=== PATIENT | male | born 1975 | race Caucasian/White ===

== ENCOUNTER 2018-08-20 10:27 | Inpatient (IN) | payer OTHER ==
[2018-08-20] MEDS ORDERED: ASPIRIN 81 MG PO STA (10:53)
[2018-08-20] MEDS ORDERED: SODIUM CHLORIDE 0.9% 1,000 ML IV STA (10:53)
[2018-08-20] MEDS ORDERED: ATORVASTATIN 80 MG TAB PO STA (10:54)
[2018-08-20] MEDS ORDERED: NITROGLYCERIN SL TABS 0.4 MG TAB SUBLINGUAL PRN ×2 (10:56→12:08)
--- NOTE | 2018-08-20 11:02 | ED ---
General Adult HPI - General Chief complaint: Chest Pain Stated complaint: chest pain Time Seen by Provider: 08/20/18 10:35 Source: patient, RN notes reviewed Mode of arrival: ambulatory Limitations: no limitations - History of Present Illness Initial comments: This is a 43-year-old male who presents emergency department with past medical history significant for blood clots for which she states she's on eliquis. Patient also has a history of MIs. Patient states she's had multiple stents and he believes she's had 3 heart attacks in the past. Patient states about an hour and a half prior to arrival he started having chest pain which made him short of breath and diaphoretic. Patient states the pain continues currently. Patient denies any nausea or vomiting. Patient denies any diarrhea. Patient denies any recent fever chills. Patient denies any headache patient denies numbness weakness. Patient denies taking any medicines prior to arrival. Patient denies any sweating the legs or calf tenderness. She does state he continues to smoke. - Related Data Home Medications Medication Instructions Recorded Confirmed Aspirin EC [Ecotrin Low Dose] 81 mg PO DAILY 08/20/18 08/20/18 Blood Thinner 1 tab PO DAILY 08/20/18 08/20/18 Allergies Allergy/AdvReac Type Severity Reaction Status Date / Time No Known Allergies Allergy Verified 08/20/18 10:38 Review of Systems ROS Statement: Those systems with pertinent positive or pertinent negative responses have been documented in the HPI. ROS Other: All systems not noted in ROS Statement are negative. Past Medical History Past Medical History: Chest Pain / Angina, Hyperlipidemia Past Surgical History: Heart Catheterization, Heart Catheterization With Stent Past Psychological History: No Psychological Hx Reported Smoking Status: Current every day smoker Past Alcohol Use History: Occasional Past Drug Use History: None Reported General Exam - General Exam Comments Initial Comments: GENERAL: Patient is well-developed and well-nourished. Patient is nontoxic and well- hydrated and is in mild distress. ENT: Neck is soft and supple. No significant lymphadenopathy is noted. Oropharynx is clear. Moist mucous membranes. Neck has full range of motion without eliciting any pain. EYES: The sclera were anicteric and conjunctiva were pink and moist. Extraocular movements were intact and pupils were equal round and reactive to light. Eyelids were unremarkable. PULMONARY: Unlabored respirations. Good breath sounds bilaterally. No audible rales rhonchi or wheezing was noted. CARDIOVASCULAR: There is a regular rate and rhythm without any murmurs gallops or rubs. ABDOMEN: Soft and nontender with normal bowel sounds. No palpable organomegaly was noted. There is no palpable pulsatile mass. SKIN: Skin is clear with no lesions or rashes and otherwise unremarkable. NEUROLOGIC: Patient is alert and oriented x3. Cranial nerves II through XII are grossly intact. Motor and sensory are also intact. Normal speech, volume and content. Symmetrical smile. MUSCULOSKELETAL: Normal extremities with adequate strength and full range of motion. LYMPHATICS: No significant lymphadenopathy is noted PSYCHIATRIC: Normal psychiatric evaluation. Limitations: no limitations Course Vital Signs 08/20/18 10:30 Temperature 97.3 F L Pulse Rate 72 Respiratory 20 Rate Blood Pressure 119/78 O2 Sat by Pulse 99 Oximetry Medical Decision Making - Medical Decision Making EKG was done at 1046 and received that showed acute NE medially called a STEMI and asked for cardiology. EKG was at a rate of 59 bpm normal sinus rhythm at heart rate of 59 bpm MT interval is 144 QRS is under 2 QT interval is 416 QTC is 411. Patient's EKG shows ST segment elevation in inferior leads II, III, and F aVF and ST segment depression in leads V1 through the 6. I spoke with Dr. Lyons soon as he called back and he arrived in the emergency department at 11:00. I did not press patient is oriented eliquis. I did give the patient Lipitor aspirin and nitroglycerin. Board chest x-ray showed no acute abnormality. I spoke with Dr. Martinez agreed to admit the patient. Critical Care Time Critical Care Time: Yes Total Critical Care Time: 35 Disposition Clinical Impression: STEMI (ST elevation myocardial infarction) Disposition: ADMITTED IP TO THIS HOSP Referrals: None,Stated [Primary Care Provider] - 1-2 days Time of Disposition: 11:00
[2018-08-20] MEDS ORDERED: IV FLUID CONTINUATION 750 ML IV ONE (11:05)
[2018-08-20 11:10] LABS: Basophils % (A) 1 %; Eosinophils # (A) 0.2 k/uL (0-0.7); Eosinophils % (A) 2 %; HCT 50.8 % (39.0-53.0); HGB 16.5 gm/dL (13.0-17.5); Lymphocytes # (A) 2.1 k/uL (1.0-4.8); Lymphocytes % (A) 25 %; MCH 30.7 pg (25.0-35.0); MCHC 32.6 g/dL (31.0-37.0); MCV 94.2 fL (80.0-100.0); Mean Platelet Volume 7.8; Monocytes # (A) 0.5 k/uL (0-1.0); Monocytes % (A) 6 %; Neutrophils # (A) 5.6 k/uL (1.3-7.7); Neutrophils % (A) 65 %; Platelet Count 253 k/uL (150-450); RBC 5.39 m/uL (4.30-5.90); RDW 12.8 % (11.5-15.5); WBC 8.5 k/uL (3.8-10.6)
[2018-08-20] MEDS ORDERED: ONDANSETRON 4 MG/2 ML VIAL ONE (11:13)
[2018-08-20] MEDS ORDERED: SODIUM CHLORIDE 0.9% 500 ML 500 ML IV ONE (11:15)
--- NOTE | 2018-08-20 11:15 | P.CRDCN ---
History of Present Illness History of present illness: This is Dr. 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 Later started experiencing midsternal chest discomfort is quite uncomfortable and he came to the emergency room here First 12-lead ECG shows sinus rhythm normal MT heart rate [address] minute and [address] elevation in the inferior leads with ST depression in V1 and V2 with T-wave inversions. There is a very subtle ST depression in V5 and V6, consistent with inferior posterior ST elevation NJ He takes ELIQUIS once a day along with an aspirin and says he has blood clot in his arteries and has a family history of this problem not sure exactly what his thrombotic history is did he was not able to give me the previous exact diagnosis ROS: No fever chills or rigors, no cough, phlegm or expectoration, +nausea, no vomiting or diarrhea, no hematuria, dysuria, no musculoskeletal complaints, no strokes or seizures, no skin lesions. EXAMINATION: Afebrile 97.3F blood pressure 119/78 mmHg pulse rate in the 70s looks uncomfortable but no respiratory distress No JVD Breath sounds are clear no rhonchi no crackles Normal heart sounds no murmurs no gallop or rub Abdomen is soft nontender Extremities are warm no edema REVIEW OF LABS, ECG & MEDICAL DATA ST elevation inferior leads ST depression V1 and V2, inferior posterior ST elevation NJ Labs white count 8.5, hemoglobin 16.5, platelets 253,000 He continues to smoke a few cigarettes Denies diabetes denies hypertension Not on statins Past Medical History Past Medical History: Chest Pain / Angina, Hyperlipidemia Past Surgical History: Heart Catheterization, Heart Catheterization With Stent Past Psychological History: No Psychological Hx Reported Smoking Status: Current every day smoker Past Alcohol Use History: Occasional Past Drug Use History: None Reported Medications and Allergies Home Medications Medication Instructions Recorded Confirmed Type Aspirin EC [Ecotrin Low Dose] 81 mg PO DAILY 08/20/18 08/20/18 History Blood Thinner 1 tab PO DAILY 08/20/18 08/20/18 History Allergies Allergy/AdvReac Type Severity Reaction Status Date / Time No Known Allergies Allergy Verified 08/20/18 10:38 Physical Exam Vitals: Vital Signs Temp Pulse Resp BP Pulse Ox 08/20/18 10:30 97.3 F L 72 20 119/78 99 Intake and Output 08/19/18 08/20/18 08/20/18 22:59 06:59 14:59 Other: Weight 83.915 kg Results 08/20/18 10:53 CBC 08/20/18 Range/Units 10:53 WBC 8.5 (3.8-10.6) k/uL RBC 5.39 (4.30-5.90) m/uL Hgb 16.5 (13.0-17.5) gm/dL Hct 50.8 (39.0-53.0) % Plt Count 253 (150-450) k/uL Current Medications Generic Name Dose Route Start Last Admin Trade Name Freq PRN Reason Stop Dose Admin Sodium Chloride 1,000 mls @ 999 mls/hr 08/20/18 10:53 08/20/18 11:00 Saline 0.9% IV 08/20/18 11:53 999 mls/hr .Q1H1M STA Administration Nitroglycerin 0.4 mg 08/20/18 10:56 08/20/18 11:00 Nitrostat SUBLINGUAL 0.4 mg Q5M PRN Administration Chest Pain Intake and Output 08/19/18 08/20/18 08/20/18 22:59 06:59 14:59 Other: Weight 83.915 kg Patient Weight 08/21/18 06:59 Weight 83.915 kg 08/20/18 10:53
--- NOTE | 2018-08-20 11:17 | XR ---
EXAMINATION TYPE: XR chest 1V portable DATE OF EXAM: 08/20/2018 COMPARISON: Prior chest x-ray 12/08/2011 HISTORY: Chest pain, myocardial infarction TECHNIQUE: Single frontal view of the chest is obtained. FINDINGS: Apical bullous disease is present on the right as on prior. No evident pneumothorax or ple ural effusion. Heart size is within normal limits. There are overlying cardiac leads. Aorta is dense. IMPRESSION: No acute process.
[2018-08-20 11:20] LABS: INR 0.9 (<1.2); Partial Thromboplastin Time 24.9 sec (22.0-30.0); Prothrombin Time 9.7 sec (9.0-12.0)
[2018-08-20] MEDS ORDERED: HYDROmorphone 1 MG/ML 1 ML SYRINGE ONE (11:20)
[2018-08-20] MEDS ORDERED: HYDROmorphone 1 MG/ML 1 ML SYRINGE IVP ONE (11:21)
[2018-08-20 11:23] LABS: ALT 27 U/L (21-72); AST 29 U/L (17-59); African American GFR (CKD) >90 (>60 ml/min/1.73 sqM); Albumin 4.4 g/dL (3.5-5.0); Alkaline Phosphatase 82 U/L (38-126); Anion Gap 10 mmol/L; Blood Urea Nitrogen 11 mg/dL (9-20); Calcium 9.5 mg/dL (8.4-10.2); Carbon Dioxide 22 mmol/L (22-30); Chloride 108 mmol/L (98-107); Glucose 129 mg/dL (74-99); Potassium 4.3 mmol/L (3.5-5.1); Sodium 140 mmol/L (137-145); Total Bilirubin 0.6 mg/dL (0.2-1.3); Total Protein 7.6 g/dL (6.3-8.2)
[2018-08-20] MEDS ORDERED: LIDOCAINE 1% INJ 10MG/ML (20 ML MDV) SQ ONE (11:24)
[2018-08-20] MEDS ORDERED: BIVALIRUDIN BOLUS 250 MG/50 ML IV ONE (11:28)
[2018-08-20] MEDS ORDERED: BIVALIRUDIN 250 MG in SODIUM CHLORIDE 0.9% 50 ML IV ONE (11:30)
[2018-08-20] MEDS ORDERED: niCARdipine 25 MG/10 ML VIAL ONE (11:45)
[2018-08-20] MEDS ORDERED: niCARdipine Syringe (1,000 mcg/10 mL) INTRACORON ONE (11:50)
[2018-08-20] MEDS ORDERED: IOPAMIDOL-370 100ML BTL INJ ONE (11:54)
[2018-08-20 11:56] LABS: Creatine Kinase MB 1.6 ng/mL (0.0-2.4)
[2018-08-20] MEDS ORDERED: PRASUGREL 10 MG TAB ONE (11:57)
[2018-08-20] MEDS ORDERED: PRASUGREL 10 MG TAB PO ONE (12:00)
[2018-08-20 12:05] LABS: Troponin I 0.081 ng/mL (0.000-0.034)
[2018-08-20] MEDS ORDERED: MAG HYDROX/AL HYDROX/SIMETH 30 ML CUP PO PRN (12:08)
[2018-08-20] MEDS ORDERED: ATROPINE SULFATE 0.1 MG/ML 10ML SYRINGE IV PRN (12:08)
[2018-08-20] MEDS ORDERED: RX INFO: IV CONTRAST WAS GIVEN 1 EACH MISC MISCELLANE PRN (12:08)
[2018-08-20] MEDS ORDERED: ZOLPIDEM 5 MG TAB PO PRN (12:08)
[2018-08-20 12:36] LABS: Glucose,Whole Blood 111 mg/dL (75-99)
[2018-08-20 13:16] VITALS: BMI 23.7
[2018-08-20] MEDS: SODIUM CHLORIDE 0.9% 1,000 ML IV SCH (13:23)
--- NOTE | 2018-08-20 13:24 | CC ---
CARDIAC CATHETERIZATION REPORT PROCEDURE: CORONARY ANGIOGRAPHY AND PTCA AND STENTING OF RCA PERFORMED BY: Dr. Natalie Cervantes Moderate conscious sedation time was 37 minutes. Patient was administered Dilaudid, Versed and oxygen saturation. Hemodynamics and EKG were monitored closely. CLINICAL INFORMATION: Mr. Melchor Urbina is a 43-year-old gentleman who presented initially 7 years ago in 2011 with an acute inferior MD and underwent stenting of RCA with a combination of bare metal and drug-eluting stents. Since then he has not followed up here, but apparently a month later, he had a repeat procedure performed of the same vessel and about 10 months ago about October also of last year he had a repeat intervention and it is unclear which vessel was performed. He presented to the hospital emergency room with chest pain strongly suggestive of acute MD with inferior ST elevation. Underwent prompt evaluation by Dr. 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 Patient was in significant pain with inferior ST elevation. Cardiac cath was performed expeditiously. This patient underwent a repeat stenting in October of last year and this was apparently performed in [place], but he has not been on dual antiplatelet therapy. He is taking aspirin and an anticoagulant probably apixaban 5 mg one tablet daily. He is not on any statin agents and seems to be very noncompliant with medications. He does continue to smoke heavily. PROCEDURE NOTE: Under local anesthesia and strict aseptic precautions, a 6-Egyptian introducer was placed in the right femoral artery. Initially I started off with a right Don type guide catheter to cannulate the RCA and this vessel was totally occluded. I performed stenting of this vessel expeditiously and then performed coronary angiography of the left system and checked LV pressures but did not perform an LV gram. PCI PROCEDURE DETAILS: A standard right Don guide catheter was used to cannulate the right coronary artery. I used a Whisper wire to cross the lesion and a 3.5, 15 mm NC Trek balloon to dilate the total occlusion. Re-perfusion was accomplished in 65 minutes since his arrival to the ER. Subsequently, I deployed a 15 mm long 4.0 caliber bare metal vision stent in the midportion of the stented segment and post dilated the entire stented segment with a 4.0 caliber 20 mm NC Trek balloon at 12 to 14 atmospheres. Excellent angiographic result was achieved. Patient had relief of chest pain with improvement but not resolution of ST-segment elevation. The sheath was taken out and Angio- Seal device used to secure hemostasis and he was sent to the room in a stable condition. Following the PCI procedure, I performed selective coronary angiography of the left system using a standard left Don catheter and a pigtail catheter was used to check LV pressures but LV gram was not performed. patient received 60 mg of Effient and Angiomax bolus and infusion was given as per protocol RECOMMENDATION: Excellent angiographic result without complication was achieved and findings were were discussed with the patient and . I explained to them that I used a bare metal stent mainly because of concern with his compliance with medications and he should be on dual antiplatelet therapy without interruption for one year and also take 80 mg of Lipitor unless there is a contraindication. I counseled him regarding the need to quit smoking. CORONARY ANGIOGRAPHY FINDINGS: RIGHT CORONARY ARTERY: This is a dominant vessel, totally occluded in the proximal portion with thrombus without antegrade flow. This stenosis seems to be in the middle of the stented segment. LEFT MAIN CORONARY ARTERY: Short patent disease-free vessel that immediately bifurcates into LAD and circumflex. No significant disease in the left main. LEFT ANTERIOR DESCENDING CORONARY ARTERY: Good caliber vessel extends along the anterior wall, has about 30% mid LAD narrowing. No significant disease, gives off 2 diagonal branches in the midportion, runs all the way to the apex supplying a sizable amount of myocardium. No significant disease in the LAD system. LEFT POSTERIOR CIRCUMFLEX CORONARY ARTERY: Nondominant vessel gives 2 small branches that run laterally, have minor irregularities. No significant disease. LEFT VENTRICULOGRAM: Left ventriculogram was not performed. FINAL IMPRESSION: This patient has total occlusion of RCA and no significant disease in the left system. Right is a super dominant vessel that was stented with a bare-metal stent with excellent result. MMODL / IJN: [id number] / MTDD
--- NOTE | 2018-08-20 14:19 | P.HPIM ---
History of Present Illness Patient is a pleasant 43-year-old gentleman had a history of myocardial infarction twice in the past came in with the atypical chest pain found to have ST elevations in inferior the lesions underwent a catheterization and stenting of the RCA. Apparently this is same vessel that was tender multiple times. 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 Patient is presently on dual antiplatelet therapy beta arturo and a statin. Patient continues to smoke did not tolerate statins in the past very well. He didn't tolerate Lipitor or Crestor Review of Systems REVIEW OF SYSTEMS: CONSTITUTIONAL: No fever, no malaise, no fatigue. HEENT: No recent visual problems or hearing problems. Denied any sore throat. CARDIOVASCULAR: As mentioned in HPI PULMONARY: No shortness of breath, no cough, no hemoptysis. GASTROINTESTINAL: No diarrhea, no nausea, no vomiting, no abdominal pain. NEUROLOGICAL: No headaches, no weakness, no numbness. HEMATOLOGICAL: Denies any bleeding or petechiae. GENITOURINARY: Denies any burning micturition, frequency, or urgency. MUSCULOSKELETAL/RHEUMATOLOGICAL: Denies any joint pain, swelling, or any muscle pain. ENDOCRINE: Denies any polyuria or polydipsia. The rest of the 14-point review of systems is negative. Past Medical History Past Medical History: Chest Pain / Angina, Hyperlipidemia, Myocardial Infarction (RI) Additional Past Medical History / Comment(s): Arthritis in both knees, elbows and wrists. Last Myocardial Infarction Date:: 08/20/18 History of Any Multi-Drug Resistant Organisms: None Reported Past Surgical History: Heart Catheterization, Heart Catheterization With Stent Date of Last Stent Placement:: 08/20/18 Past Psychological History: No Psychological Hx Reported Smoking Status: Current every day smoker Past Alcohol Use History: Occasional Past Drug Use History: None Reported - Past Family History Mother Family Medical History: Deep Vein Thrombosis (DVT) Additional Family Medical History / Comment(s): Pt states "my moms entire side of the family has a history of clotting." Medications and Allergies Home Medications Medication Instructions Recorded Confirmed Type Aspirin EC [Ecotrin Low Dose] 81 mg PO DAILY 08/20/18 08/20/18 History Blood Thinner 1 tab PO DAILY 08/20/18 08/20/18 History Allergies Allergy/AdvReac Type Severity Reaction Status Date / Time No Known Allergies Allergy Verified 08/20/18 10:38 Physical Exam Vitals: Vital Signs Temp Pulse Resp BP Pulse Ox 08/20/18 14:00 62 16 137/85 97 08/20/18 13:20 73 17 97 08/20/18 13:10 72 16 97 08/20/18 13:00 68 14 139/87 97 08/20/18 12:50 67 12 97 08/20/18 12:40 98.1 F 61 16 141/89 98 08/20/18 12:35 17 08/20/18 11:10 135/92 08/20/18 11:00 23 113/83 99 08/20/18 10:52 65 17 133/95 100 08/20/18 10:30 97.3 F L 72 20 119/78 99 Intake and Output 08/19/18 08/20/18 08/20/18 22:59 06:59 14:59 Intake Total 1125 Output Total 0 Balance 1125 Intake: IV 1125 0.9 225 Output: Urine 0 Other: Voiding Method Urinal # Voids 0 Weight 83.915 kg PHYSICAL EXAMINATION: GENERAL: The patient is alert and oriented x3, not in any acute distress. Well developed, well nourished. HEENT: Pupils are round and equally reacting to light. EOMI. No scleral icterus. No conjunctival pallor. Normocephalic, atraumatic. No pharyngeal erythema. No thyromegaly. CARDIOVASCULAR: S1 and S2 present. No murmurs, rubs, or gallops. PULMONARY: Chest is clear to auscultation, no wheezing or crackles. ABDOMEN: Soft, nontender, nondistended, normoactive bowel sounds. No palpable organomegaly. MUSCULOSKELETAL: No joint swelling or deformity. EXTREMITIES: No cyanosis, clubbing, or pedal edema. NEUROLOGICAL: Gross neurological examination did not reveal any focal deficits. SKIN: No rashes. Results CBC & Chem 7: 08/20/18 10:53 08/20/18 10:53 Labs: Abnormal Lab Results - Last 24 Hours (Table) 08/20/18 08/20/18 08/20/18 Range/Units 10:53 10:53 12:34 Chloride 108 H (98-107) mmol/L Glucose 129 H (74-99) mg/dL POC Glucose (mg/dL) 111 H (75-99) mg/dL Total Creatine Kinase 241 H (55-170) U/L Troponin I 0.081 H* (0.000-0.034) ng/mL Thrombosis Risk Factor Assmnt - Choose All That Apply Each Factor Represents 1 point: Acute RI, Age 41-60 years Each Risk Factor Represents 3 Points: Family history of DVT/PE Thrombosis Risk Factor Assessment Total Risk Factor Score: 5 Thrombosis Risk Factor Assessment Level: High Risk Assessment and Plan Plan: -ST elevation myocardial infarction: Patient is status post cardiac catheterization and stenting of the RCA patient did not tolerate Lipitor well in the past but patient is presently on that medication will discuss with cardiology regarding this. Patient stopped this medication in the past because of severe myalgias he even tried Crestor which has lesser side effects but did not tolerate that either. Because of non-ST elevation microinfarction patient will monitor for next couple days possibility of discharge on patient is prone to life-threatening arrhythmias including V. tach in first 48-72 hours -Continued nicotine use: Counseling was provided regarding this -Hypertension
[2018-08-20] MEDS: ATORVASTATIN 80 MG TAB PO SCH (20:58)
[2018-08-20] MEDS: LISINOPRIL 10 MG TAB PO SCH (20:59)
[2018-08-20] MEDS: METOPROLOL TARTRATE 12.5 MG TAB PO SCH (20:59)
[2018-08-21] MEDS: SODIUM CHLORIDE 0.9% 1,000 ML IV SCH (01:30)
[2018-08-21 06:01] LABS: Basophils % (A) 0 %; Eosinophils # (A) 0.1 k/uL (0-0.7); Eosinophils % (A) 1 %; HCT 46.3 % (39.0-53.0); HGB 15.2 gm/dL (13.0-17.5); Lymphocytes % (A) 21 %; MCH 30.8 pg (25.0-35.0); MCHC 32.9 g/dL (31.0-37.0); MCV 93.9 fL (80.0-100.0); Mean Platelet Volume 8.3; Monocytes # (A) 0.5 k/uL (0-1.0); Monocytes % (A) 6 %; Neutrophils # (A) 6.6 k/uL (1.3-7.7); Neutrophils % (A) 70 %; Platelet Count 198 k/uL (150-450); RBC 4.94 m/uL (4.30-5.90); RDW 15.1 % (11.5-15.5); WBC 9.4 k/uL (3.8-10.6)
[2018-08-21 06:13] LABS: African American GFR (CKD) >90 (>60 ml/min/1.73 sqM); Anion Gap 5 mmol/L; Blood Urea Nitrogen 9 mg/dL (9-20); Calcium 8.5 mg/dL (8.4-10.2); Carbon Dioxide 21 mmol/L (22-30); Chloride 114 mmol/L (98-107); Glucose 97 mg/dL (74-99); Potassium 4.2 mmol/L (3.5-5.1); Sodium 140 mmol/L (137-145)
[2018-08-21] MEDS: PRASUGREL 10 MG TAB PO SCH (08:49)
[2018-08-21] MEDS: ASPIRIN 81 MG PO SCH (08:49)
[2018-08-21] MEDS: METOPROLOL TARTRATE 12.5 MG TAB PO SCH ×2 (09:27→19:51)
--- NOTE | 2018-08-21 11:54 | ECHOF ---
Referral Reason:Inferior STEMI and RCA PCI MEASUREMENTS -------- HEIGHT: 188.0 cm WEIGHT: 83.9 kg BP: 91/52 RVIDd: 2.9 cm (< 3.3) IVSd: 1.3 cm (0.6 - 1.1) LVIDd: 4.2 cm (3.9 - 5.3) LVPWd: 1.2 cm (0.6 - 1.1) IVSs: 1.7 cm LVIDs: 2.9 cm LVPWs: 1.9 cm LA Diam: 3.1 cm (2.7 - 3.8) LAESV Index (A-L): 16.95 ml/m Ao Diam: 3.6 cm (2.0 - 3.7) AV Cusp: 1.8 cm (1.5 - 2.6) MV EXCURSION: 27.939 mm (> 18.000) MV EF SLOPE: 127 mm/s (70 - 150) EPSS: 0.5 cm MV E Garth: 0.84 m/s MV DecT: 161 ms MV A Garth: 0.93 m/s MV E/A Ratio: 0.91 RAP: 5.00 mmHg RVSP: 25.10 mmHg FINDINGS -------- Resting bradycardia (HR<60bpm). This was a technically good study. The left ventricular size is normal. There is mild concentric left ventricular hypertrophy. Overa ll left ventricular systolic function is normal with, an EF between 55 - 60 %. The right ventricle is normal in size. Normal LA size by volume 22+/-6 ml/m2. The right atrium is normal in size. Aneurysmal Interatrial septum. The aortic valve is trileaflet and appears structurally normal. The mitral valve is normal. Mild tricuspid regurgitation present. Right ventricular systolic pressure is normal at < 35 mmHg. The aortic root size is normal. Normal inferior vena cava with normal inspiratory collapse consistent with estimated right atrial pre ssure of 5 mmHg. There is no pericardial effusion. CONCLUSIONS -------- 1. Resting bradycardia (HR<60bpm). 2. This was a technically good study. 3. The left ventricular size is normal. 4. There is mild concentric left ventricular hypertrophy. 5. Overall left ventricular systolic function is normal with, an EF between 55 - 60 %. 6. The right ventricle is normal in size. 7. Normal LA size by volume 22+/-6 ml/m2. 8. The right atrium is normal in size. 9. Aneurysmal Interatrial septum. 10. The aortic valve is trileaflet and appears structurally normal. 11. The mitral valve is normal. 12. Mild tricuspid regurgitation present. 13. Right ventricular systolic pressure is normal at < 35 mmHg. 14. The aortic root size is normal. 15. Normal inferior vena cava with normal inspiratory collapse consistent with estimated right atrial pressure of 5 mmHg. 16. There is no pericardial effusion. PSYCHIATRY INSTRUCTOR: Linda Denise RDCS
[2018-08-21] MEDS ORDERED: PRASUGREL 10 MG TAB PO SCH (12:09)
--- NOTE | 2018-08-21 14:21 | P.PN ---
Subjective Patient was admitted for [facility] microinfarction clinically doing well underwent stenting to RCA. Patient's troponin is 3.29. Post catheterization Echocardiogram showed normal ejection fraction. Constitutional: Denied any fatigue denied any fever. Cardio vascular: denied any chest pain, palpitations Gastrointestinal denied any nausea vomiting Pulmonary: Denied any shortness of breath cough Neurologic denied any new focal deficits All inpatient medications were reviewed and appropriate changes in these medications as dictated in the interval history and assessment and plan. Objective - Vital Signs Vital signs: Vital Signs Temp 97.7 F 08/21/18 12:00 Pulse 50 L 08/21/18 12:00 Resp 19 08/21/18 12:00 BP 102/67 08/21/18 12:00 Pulse Ox 95 08/21/18 12:00 Intake & Output 08/20/18 08/21/18 08/21/18 18:59 06:59 18:59 Intake Total 1425 900 450 Output Total 750 700 0 Balance 675 200 450 Weight 83.915 kg 79.7 kg Intake: IV 1425 900 450 0.9 525 900 450 Output: Urine 750 700 0 Other: Voiding Method Urinal Urinal Urinal # Voids 1 0 1 # Bowel Movements 1 - Exam PHYSICAL EXAMINATION: GENERAL: The patient is alert and oriented x3, not in any acute distress. Well developed, well nourished. HEENT: Pupils are round and equally reacting to light. EOMI. No scleral icterus. No conjunctival pallor. Normocephalic, atraumatic. No pharyngeal erythema. No thyromegaly. CARDIOVASCULAR: S1 and S2 present. No murmurs, rubs, or gallops. PULMONARY: Chest is clear to auscultation, no wheezing or crackles. ABDOMEN: Soft, nontender, nondistended, normoactive bowel sounds. No palpable organomegaly. MUSCULOSKELETAL: No joint swelling or deformity. EXTREMITIES: No cyanosis, clubbing, or pedal edema. NEUROLOGICAL: Gross neurological examination did not reveal any focal deficits. SKIN: No rashes. - Labs CBC & Chem 7: 08/21/18 05:47 08/21/18 05:47 Labs: Abnormal Lab Results - Last 24 Hours (Table) 08/20/18 08/21/18 Range/Units 17:14 05:47 Chloride 114 H (98-107) mmol/L Carbon Dioxide 21 L (22-30) mmol/L Troponin I 3.290 H* (0.000-0.034) ng/mL Assessment and Plan Plan: -ST elevation myocardial infarction: Patient is status post cardiac catheterization and stenting of the RCA patient did not tolerate Lipitor well in the past but patient is presently on that medication will discuss with cardiology regarding this. Patient stopped this medication in the past because of severe myalgias he even tried Crestor which has lesser side effects but did not tolerate that either. Because of non-ST elevation microinfarction patient will monitor for next couple days possibility of discharge on patient is prone to life-threatening arrhythmias including V. tach in first 48-72 hours. Patient had normal ejection fraction and cardiac echocardiogram -Continued nicotine use: Counseling was provided regarding this -Hypertension
--- NOTE | 2018-08-21 14:29 | P.PN ---
Subjective This is Beata Salgado PA-C dictating a progress note on this patient The patient was interviewed and examined by me as well as by Dr. Lyons Case discussed with Dr. Lyons and he agrees with the plan of care IMPRESSION / ASSESSMENT: Inferior posterior ST elevation [place] status post stenting to the RCA CAD status post multiple previous stents Dyslipidemia, history of intolerance to statins, tolerated atorvastatin yesterday History of arterial thrombotic condition, exact diagnosis unknown Current Smoker PLAN: Continue with dual antiplatelet therapy continue atorvastatin 80 mg daily as tolerated Continue was low-dose beta arturo as tolerated Maximize medical treatment for CAD HPI/interval history Patient is a 43-year-old male with a past medical history of CAD status post stenting who presented with chest pain. EKG showed ST elevation inferiorly. He underwent coronary angiography which showed a total occlusion to the RCA which was stented. He had some sinus bradycardia overnight. He did receive beta blockers. Echocardiogram showed normal LV size and function. Currently denies any chest pain, palpitations, dizziness, lightheadedness, shortness of breath. He slept comfortably, no orthopnea, no PND. EXAMINATION Patient is afebrile, pulse 51, respirations 22, blood pressure 97/60, oxygen saturation 96% on room air Patient seen and examined resting comfortably in bed Heart is regular, normal S1-S2, no murmurs rubs or gallops Lungs clear to auscultation bilaterally No elevated JVD No lower extremity edema REVIEW OF LABS, ECG WBC 9.4, hemoglobin 15.1, potassium 4.2, BUN/creatinine 9, creatinine 2.81 Rhythm strips reveal sinus bradycardia in 50s Echocardiogram showed normal LV size, mild concentric LVH, normal LV function, EF 55-60% Coronary angiogram showed total occlusion of the RCA Objective - Vital Signs Vital signs: Vital Signs Temp 97.7 F 08/21/18 12:00 Pulse 50 L 08/21/18 12:00 Resp 19 08/21/18 12:00 BP 102/67 08/21/18 12:00 Pulse Ox 95 08/21/18 12:00 Intake & Output 08/20/18 08/21/18 08/21/18 18:59 06:59 18:59 Intake Total 1425 900 450 Output Total 750 700 0 Balance 675 200 450 Weight 83.915 kg 79.7 kg Intake: IV 1425 900 450 0.9 525 900 450 Output: Urine 750 700 0 Other: Voiding Method Urinal Urinal Urinal # Voids 1 0 1 # Bowel Movements 1 - Labs CBC & Chem 7: 08/21/18 05:47 08/21/18 05:47 Labs: Abnormal Lab Results - Last 24 Hours (Table) 08/20/18 08/21/18 Range/Units 17:14 05:47 Chloride 114 H (98-107) mmol/L Carbon Dioxide 21 L (22-30) mmol/L Troponin I 3.290 H* (0.000-0.034) ng/mL
[2018-08-21] MEDS: LISINOPRIL 10 MG TAB PO SCH (19:51)
[2018-08-21] MEDS: ATORVASTATIN 80 MG TAB PO SCH (19:51)
[2018-08-22] MEDS: ASPIRIN 81 MG PO SCH (09:09)
[2018-08-22] MEDS: METOPROLOL TARTRATE 12.5 MG TAB PO SCH (09:09)
[2018-08-22] MEDS: PRASUGREL 10 MG TAB PO SCH (09:09)
[2018-08-22 12:39] VITALS: BP 104/70; PULSE 55; RESP 14; TEMP 97.5
--- NOTE | 2018-08-22 13:37 | P.DS ---
Providers Date of admission: 08/20/18 11:08 Attending physician: Luis Neil Consults: 08/20/18 10:53 Consult Physician Stat Consulting Provider: Xavier Lyons Consult Reason/Comments: STEMI Do you want consulting provider notified?: Already Contacted 08/20/18 12:08 Consult Physician Routine Consulting Provider: [facility] Consult Reason/Comments: Post Interventional patient Do you want consulting provider notified?: Already Contacted Placement Type Exists?: Yes Primary care physician: Stated None Hospital Course: 43-year-old male was admitted for ST elevation myocardial infarction, underwent stenting of RCA patient is clinically doing well will be discharged today patient had normal ejection fraction. PHYSICAL EXAMINATION: GENERAL: The patient is alert and oriented x3, not in any acute distress. Well developed, well nourished. HEENT: Pupils are round and equally reacting to light. EOMI. No scleral icterus. No conjunctival pallor. Normocephalic, atraumatic. No pharyngeal erythema. No thyromegaly. CARDIOVASCULAR: S1 and S2 present. No murmurs, rubs, or gallops. PULMONARY: Chest is clear to auscultation, no wheezing or crackles. ABDOMEN: Soft, nontender, nondistended, normoactive bowel sounds. No palpable organomegaly. MUSCULOSKELETAL: No joint swelling or deformity. EXTREMITIES: No cyanosis, clubbing, or pedal edema. NEUROLOGICAL: Gross neurological examination did not reveal any focal deficits. SKIN: No rashes. Principal to my dictation of prednisone from yesterday for further details of hospitalization course and other medical problems that were addressed if Plan - Discharge Summary Discharge Rx Participant: Yes New Discharge Prescriptions: No Action Aspirin EC [Ecotrin Low Dose] 81 mg PO DAILY Eliquis Unknown Dose 1 tab PO DAILY Discharge Medication List Aspirin EC [Ecotrin Low Dose] 81 mg PO DAILY 08/20/18 [History] Eliquis Unknown Dose 1 tab PO DAILY 08/20/18 [History] Follow up Appointment(s)/Referral(s): Xavier Lyons MD [STAFF PHYSICIAN] - 08/30/18 1:30 pm Nicholas Talley MD [STAFF PHYSICIAN] - 08/29/18 9:30 am None,Stated [Primary Care Provider] - 1-2 days Patient Instructions/Handouts: Hypotension (GEN), Bradycardia (GEN), Coronary Intravascular Stent Placement (DC) Discharge Disposition: HOME SELF-CARE
--- NOTE | 2018-08-22 15:02 | P.PN ---
Subjective This is Beata Salgado PA-C dictating a progress note on this patient The patient was interviewed and examined by me as well as by Dr. Lyons Case discussed with Dr. Lyons and he agrees with the plan of care IMPRESSION / ASSESSMENT: Inferior posterior ST elevation [place] status post stenting of the RCA History of CAD status post multiple previous stents Dyslipidemia, history of statin induced myalgias Patient was on eliquis 2.5 mg twice daily at home, indication/diagnosis unknown current smoker PLAN: Continue with dual antiplatelet therapy, beta blockers In light of his history of severe myalgias with atorvastatin, Try Pravachol 40 mg daily for statin therapy Patient is to get his records from out of town and bring them to his appointment so that we can see why he was on eliquis make a decision regarding antiplatelet and anticoagulation therapy Patient is stable for discharge from a cardiac standpoint, follow-up outpatient with Dr. Lyons within a week smoking cessation recommended HPI/interval history Patient is a 43-year-old male with past medical history of CAD status post multiple previous stents who presented to the emergency department with chest pain. His EKG showed ST elevations inferiorly. He underwent coronary angiography and was found to have total occlusion of the RCA and underwent stenting. He has done well post procedure. He was started on atorvastatin but is concerned because he had severe muscle aches 3 days after starting atorvastatin a few years ago. Also, prior to this admission, he was on on eliquis 2.5 mg twice a day at home and is unclear exactly why he was on this. He believes he may have an arterial thrombotic condition but is unsure of the exact diagnosis. Does not believe he ever had blood clots in his legs. He also believes he may have been put on it for a "a very fast heart rate". He was seen and examined sitting up in his chair, appears comfortable. Denies any chest pain, shortness of breath, lightheadedness, dizziness, syncope. EXAMINATION Patient is afebrile, pulse 55, respirations 14, blood pressure 104/70, oxygen saturation 90% on room air Patient seen and examined resting comfortably in bed Lungs clear to auscultation bilaterally, no rhonchi, wheezing, or crackles appreciated Heart is regular, normal S1 and S2, no murmurs gallops or rubs No lower extremity edema REVIEW OF LABS, ECG Rhythm strips reveal no ventricular arrhythmias overnight Echo showed normal LV size and function, EF 55-60%, mild concentric LVH most recent labs: Potassium 4.2, BUN 9, creatinine 0.81 Objective - Vital Signs Vital signs: Vital Signs Temp 97.5 F L 08/22/18 12:00 Pulse 55 L 08/22/18 12:00 Resp 14 08/22/18 12:00 BP 104/70 08/22/18 12:00 Pulse Ox 95 08/22/18 12:00 Intake & Output 08/21/18 08/22/18 08/22/18 18:59 06:59 18:59 Intake Total 950 0 0 Output Total 0 1350 Balance 950 -1350 0 Weight 78.4 kg Intake: IV 450 0 0 0.9 450 0 0 Oral 500 Output: Urine 0 1350 Other: Voiding Method Urinal Urinal Urinal # Voids 2 1 1 # Bowel Movements 1 - Labs CBC & Chem 7: 08/21/18 05:47 08/21/18 05:47
[2018-08-22] MEDS ORDERED: PRAVASTATIN SODIUM 40 MG TAB PO SCH (21:00)
[2018-08-24] MEDS ORDERED: CLOPIDOGREL 75 MG TAB PO SCH (09:00)
== END 2018-08-22 14:59 | disposition home or self-care (01) | DRG 249 ==
LOC: EC 10:27 → 2SICU 11:08
PROVIDERS: ADMIT Internal Medicine; ATTEND Internal Medicine
PROC: 02703DZ Dilation of Coronary Artery, One Artery with Intraluminal Device, Percutaneous Approach (ICD-10-PCS; principal; 2018-08-20 11:15)
PROC: B2111ZZ Fluoroscopy of Multiple Coronary Arteries using Low Osmolar Contrast (ICD-10-PCS; 2018-08-20 11:15)
DX: I21.11 ST elevation (STEMI) myocardial infarction involving right coronary artery (principal); E78.5 Hyperlipidemia, unspecified; I25.10 Atherosclerotic heart disease of native coronary artery without angina pectoris; I10 Essential (primary) hypertension; M17.0 Bilateral primary osteoarthritis of knee; M19.022 Primary osteoarthritis, left elbow; M19.021 Primary osteoarthritis, right elbow; M19.032 Primary osteoarthritis, left wrist; M19.031 Primary osteoarthritis, right wrist; I25.2 Old myocardial infarction; T50.906A Underdosing of unspecified drugs, medicaments and biological substances, initial encounter; F17.210 Nicotine dependence, cigarettes, uncomplicated; Z71.6 Tobacco abuse counseling; Z79.01 Long term (current) use of anticoagulants; Z79.82 Long term (current) use of aspirin; Z95.5 Presence of coronary angioplasty implant and graft; Z86.2 Personal history of diseases of the blood and blood-forming organs and certain disorders involving the immune mechanism; Z83.2 Family history of diseases of the blood and blood-forming organs and certain disorders involving the immune mechanism
CPT/HCPCS: 36415; 71045; 80048; 80053; 82550; 82553; 84484; 85025; 85610; 85730; 92941; 93005; 93306; 93458; 99291

== ENCOUNTER 2021-03-01 11:39 | Inpatient (IN) | payer OTHER ==
--- NOTE | 2021-03-01 11:43 | ED ---
General Adult HPI - General Stated complaint: STEMI - History of Present Illness Initial comments: Dictation was produced using [employer] dictation software. please excuse any grammatical, word or spelling errors. Chief Complaint: 45 year old male presents with ST segment elevation [place] History of Present Illness: Is a 45-year-old male presents emergency department for ST segment elevation [place]. Patient states he has a history of myocardial infarction. Symptoms began acutely today proximally one prior to arrival. States that he has substernal chest pressure that radiates down the left upper extremity. Patient states he was also diaphoretic associated with nausea. He has had multiple myocardial infarctions in the past. Patient denies any shortness of breath. Patient is given aspirin and nitroglycerin by prehospital providers. States that his symptoms are still severe with a pain score of 9 out of 10. The ROS documented in this emergency department record has been reviewed and confirmed by me. Those systems with pertinent positive or negative responses have been documented in the HPI. All other systems are other negative and/or noncontributory. PHYSICAL EXAM: General Impression: Alert and oriented x3, not in acute distress HEENT: Normocephalic atraumatic, extra-ocular movements intact, pupils equal and reactive to light bilaterally, mucous membranes moist. Cardiovascular: Heart regular rate and rhythm Chest: Able to complete full sentences, no retractions, no tachypnea Abdomen: abdomen soft, non-tender, non-distended, no organomegaly Musculoskeletal: Pulses present and equal in all extremities, no peripheral edema Motor: no focal deficits noted Neurological: CN II-XII grossly intact, no focal motor or sensory deficits noted Skin: Intact with no visualized rashes Psych: Normal affect and mood ED course: 45-year-old male presents emergency department for ST segment elevation [place]. Prehospital EKG was reviewed. His inferior ST segment elevation [place] and reciprocal changes in the high lateral leads and anterior precordial l [place]. Patient has extensive history of coronary artery disease. Patient evaluated at the bedside. He has no strokelike symptoms. No concern for aortic dissection. Patient will be dispositioned directly to the [facility] - Related Data Previous Rx's Medication Instructions Recorded Aspirin 81 mg PO DAILY #30 chew 08/22/18 Clopidogrel [Plavix] 75 mg PO DAILY #30 tab 08/22/18 Metoprolol Tartrate [Lopressor] 12.5 mg PO BID #60 tab 08/22/18 Nitroglycerin Sl Tabs [Nitrostat] 0.4 mg SUBLINGUAL Q5M PRN #25 tab 08/22/18 Pravastatin Sodium [Pravachol] 40 mg PO HS #30 tab 08/22/18 Allergies Allergy/AdvReac Type Severity Reaction Status Date / Time olive Allergy Anaphylaxis Uncoded 08/20/18 19:20 Review of Systems ROS Statement: Those systems with pertinent positive or pertinent negative responses have been documented in the HPI. ROS Other: All systems not noted in ROS Statement are negative. Past Medical History Past Medical History: Chest Pain / Angina, Hyperlipidemia, Myocardial Infarction ([place]) Additional Past Medical History / Comment(s): Arthritis in both knees, elbows and wrists. Last Myocardial Infarction Date:: 08/20/18 History of Any Multi-Drug Resistant Organisms: None Reported Past Surgical History: Heart Catheterization, Heart Catheterization With Stent Date of Last Stent Placement:: 08/20/18 Past Psychological History: No Psychological Hx Reported Past Alcohol Use History: Occasional Past Drug Use History: None Reported - Past Family History Mother Family Medical History: Deep Vein Thrombosis (DVT) Additional Family Medical History / Comment(s): Pt states "my moms entire side of the family has a history of clotting." Disposition Clinical Impression: STEMI (ST elevation myocardial infarction) Disposition: ADMITTED IP TO THIS HOSP Condition: Critical Referrals: Booker Saldivar MD [Primary Care Provider] - 1-2 days
[2021-03-01] MEDS ORDERED: fentaNYL (PF) 50 MCG/ML 2 ML AMP ONE (11:52)
[2021-03-01] MEDS ORDERED: MIDAZOLAM 2 MG/2 ML VIAL IV ONE (11:59)
[2021-03-01] MEDS: fentaNYL (PF) 50 MCG/ML 2 ML AMP IV ONE ×2 (11:59→12:07)
[2021-03-01] MEDS ORDERED: LIDOCAINE 1% INJ 10MG/ML (20 ML MDV) SQ ONE (11:59)
[2021-03-01] MEDS ORDERED: IV FLUID CONTINUATION 400 ML IV ONE (12:00)
[2021-03-01] MEDS ORDERED: VERAPAMIL SYRINGE (5 MG/10 ML) INTRAARTER ONE (12:00)
[2021-03-01] MEDS ORDERED: PRASUGREL 10 MG TAB ONE (12:18)
[2021-03-01] MEDS ORDERED: PRASUGREL 10 MG TAB PO ONE (12:19)
[2021-03-01] MEDS ORDERED: MORPHINE SULFATE 4 MG/ML SYRINGE ONE (12:25)
[2021-03-01] MEDS ORDERED: NITROGLYCERIN SL TABS 0.4 MG TAB SUBLINGUAL PRN (12:25)
[2021-03-01] MEDS ORDERED: MORPHINE SULFATE 4 MG/ML SYRINGE IV ONE (12:29)
[2021-03-01] MEDS ORDERED: IOPAMIDOL-370 125ML BTL INJ ONE (12:36)
--- NOTE | 2021-03-01 12:37 | P.CRDCN ---
History of Present Illness Consult date: 03/01/21 History of present illness: HISTORY OF PRESENT ILLNESS: This is a 45-year-old male with a past medical history significant for coronary artery disease with multiple previous stents (6 per patient, thinks most recent stent was 2 years ago), hypertension, hyperlipidemia, and nicotine dependence. Patient follows with a clinical research monitor out of [place]. We have been asked to see the patient in consultation for STEMI. Patient presented to the ER via EMS secondary to chest pain. Patient states he started having chest pain about an hour ago. He reports radiation to the left arm. He also reports diaphoresis. Patient did receive 4 baby aspirin, nitro, and morphine per EMS. Patient is currently rating his pain 7/10. EKG performed by EMS revealed ST elevation in inferior leads with reciprocal changes in the anterior and lateral leads. Patient did have an echocardiogram performed at this facility in 2019 revealing ejection fraction 55-60% with mild tricuspid regurgitation Patient underwent cardiac catheterization with Dr. Cervantes in 2019 revealing total occlusion of the RCA. No significant disease in the left system. Right is a super dominant vessel that was stented with bare metal stent with excellent results. REVIEW OF SYSTEMS: At the time of my exam: CONSTITUTIONAL: Denies fever or chills. HEENT: Denies blurred vision, vision changes, or eye pain. Denies hemoptysis CARDIOVASCULAR: + chest pain. Denies orthopnea. Denies PND. Denies palpitations RESPIRATORY: Denies shortness of breath. GASTROINTESTINAL: Denies abdominal pain. Denies nausea or vomiting. HEMATOLOGIC: Denies bleeding disorders. GENITOURINARY: Denies any blood in urine. SKIN: Denies pruitis. Denies rash. PHYSICAL EXAM: VITAL SIGNS: Reviewed. GENERAL: Well-developed in no acute distress. HEENT: Head is normocephalic. Pupils are equal, round. Sclerae anicteric. Mucous membranes of the mouth are moist. Neck supple. No JVD or thyromegaly LUNGS: Respirations even and unlabored. Lungs essentially clear to auscultation bilaterally. HEART: Regular rate and rhythm. S1 and S2 heard. ABDOMEN: Soft. Nondistended. Nontender. EXTREMITIES: Normal range of motion. No clubbing or cyanosis. Peripheral pulses intact. No lower extremity edema NEUROLOGIC: Awake and alert. Oriented x 3. ASSESSMENT: Inferior STEMI Coronary artery disease with previous PCI Hypertension Hyperlipidemia Nicotine dependence PLAN: Patient was taken urgently to the laboratory technician upon arrival to the ER to undergo cardiac cath with Dr. Watkins. Patient agreeable. Patient received 4 baby aspirin by EMS. Notified laboratory technician team that patient did not receive IV heparin bolus or lipitor in ER. Obtain 2D echo to assess cardiac structure and function post cath Smoking cessation recommended Further recommendations pending patient course Nurse practitioner note has been reviewed by physician. Signing provider agrees with the documented findings, assessment, and plan of care. Past Medical History Past Medical History: Chest Pain / Angina, Hyperlipidemia, Myocardial Infarction ([place]) Additional Past Medical History / Comment(s): Arthritis in both knees, elbows and wrists. Last Myocardial Infarction Date:: 08/20/18 History of Any Multi-Drug Resistant Organisms: None Reported Past Surgical History: Heart Catheterization, Heart Catheterization With Stent Date of Last Stent Placement:: 08/20/18 Past Psychological History: No Psychological Hx Reported Smoking Status: Current every day smoker Past Alcohol Use History: Occasional Past Drug Use History: None Reported - Past Family History Mother Family Medical History: Deep Vein Thrombosis (DVT) Additional Family Medical History / Comment(s): Pt states "my moms entire side of the family has a history of clotting." Medications and Allergies Home Medications Medication Instructions Recorded Confirmed Type Aspirin 81 mg PO DAILY #30 chew 08/22/18 Rx Clopidogrel [Plavix] 75 mg PO DAILY #30 tab 08/22/18 Rx Metoprolol Tartrate [Lopressor] 12.5 mg PO BID #60 tab 08/22/18 Rx Nitroglycerin Sl Tabs [Nitrostat] 0.4 mg SUBLINGUAL Q5M PRN #25 tab 08/22/18 Rx Pravastatin Sodium [Pravachol] 40 mg PO HS #30 tab 08/22/18 Rx Allergies Allergy/AdvReac Type Severity Reaction Status Date / Time olive Allergy Anaphylaxis Uncoded 03/01/21 11:58 Physical Exam Vitals: Intake and Output 02/28/21 03/01/21 03/01/21 22:59 06:59 14:59 Other: Weight 0 g Results Current Medications Generic Name Dose Route Start Last Admin Trade Name Freq PRN Reason Stop Dose Admin Aspirin 81 mg 03/02/21 09:00 Aspirin 81 Mg PO DAILY [facility] Atorvastatin Calcium 80 mg 03/01/21 21:00 Atorvastatin 80 Mg Tab PO HS [facility] Clopidogrel Bisulfate 75 mg 03/02/21 09:00 Clopidogrel 75 Mg Tab PO DAILY [facility] Lisinopril 10 mg 03/02/21 09:00 Lisinopril 10 Mg Tab PO DAILY [facility] Metoprolol Tartrate 12.5 mg 03/01/21 21:00 Metoprolol Tartrate 12.5 Mg Tab PO BID [facility] Nitroglycerin 0.4 mg 03/01/21 12:25 Nitroglycerin Sl Tabs 0.4 Mg Tab SUBLINGUAL Q5M PRN Chest Pain Intake and Output 02/28/21 03/01/21 03/01/21 22:59 06:59 14:59 Other: Weight 0 g Patient Weight 03/02/21 06:59 Weight 0 g
[2021-03-01] MEDS ORDERED: RX INFO: IV CONTRAST WAS GIVEN 1 EACH MISC MISCELLANE PRN (12:42)
[2021-03-01] MEDS ORDERED: ATROPINE SULFATE 0.1 MG/ML 10ML SYRINGE IV PRN (12:42)
[2021-03-01] MEDS ORDERED: MAG HYDROX/AL HYDROX/SIMETH 30 ML CUP PO PRN (12:42)
[2021-03-01] MEDS ORDERED: ZOLPIDEM 5 MG TAB PO PRN (12:42)
[2021-03-01] MEDS ORDERED: SODIUM CHLORIDE 0.9% 1,000 ML in EMPTY BAG 1 BAG IV SCH (12:45)
--- NOTE | 2021-03-01 12:51 | P.PCN ---
Date of Procedure: 03/01/21 Operative Findings: CARDIAC CATHETERIZATION AND PERCUTANEOUS CORONARY INTERVENTION PERFORMING PHYSICIAN: Alek Watkins MD, VI PROCEDURE PERFORMED: 1. Selective right and left coronary angiogram 2. Left heart catheterization 3. Successful stenting of the mid right coronary artery using 4.0 x 38 mm Xience drug-eluting stent with an excellent angiographic results 4. Intravascular ultrasound of the right coronary artery 5. Aspiration thrombectomy from the right coronary artery INDICATION: This is a 45-year-old gentleman with a CAD and prior stenting of the RCA who was brought to the emergency department with ambulance after he was diagnosed with acute inferior ST patient myocardial infarction COMPLICATION: None APPROACH: Right radial artery LEVEL OF SEDATION: Moderate with a sedation length of 42 minutes PROCEDURE DESCRIPTION: After obtaining an informed consent, the patient was brought to cardiac laborer tan house. Local anesthesia was performed using lidocaine subcutaneously. The right radial artery was cannulated using Seldinger technique, the guidewire passed easily, following that we advanced a 5-Dutch sheath dilator assembly, the wire and dilator were removed and sheath was flushed. Following that, 2 mg of verapamil along with [id number] unit heparin were given. Selective right and left coronary angiogram using a 6-Dutch JR4 and JL 3.5 catheters. After that I did intervene on the RCA. Following that we did left heart catheterization using 6-Dutch pigtail catheter. The procedure was completed there was no complication. SELECTIVE CORONARY ANGIOGRAM: The right coronary artery: Is a large caliber vessel and a dominant vessel. The RCA is occluded in the midportion with a large thrombus burden Left main: Is angiographically normal. Bifurcates into LCx and LAD The left circumflex: Is a large caliber vessel and on dominant vessel. The LCx is has mild disease only and gives rises into the first and second obtuse marginal branches and both appeared to be angiographically normal The left anterior descending artery: Is a large caliber vessel. The LAD appeared to be angiographically normal. Gives rises into the first and second diagonal branches and both appeared to be angiographically normal HEMODYNAMICS: The LVEDP was also millimeters mercury without significant gradient across aortic valve PERCUTANEOUS CORONARY INTERVENTION OF THE RIGHT CORONARY ARTERY Anticoagulation was initiated using heparin with continuous ACT monitoring throughout the case. Subsequently I did engage the RCA using a JR4 guiding catheter. I did wire it using a run-through wire. After that I did aspiration thrombectomy from the right coronary artery using the export catheter with extraction of large thrombus burden. After that and before deployed another stent I did intravascular ultrasound which revealed a diameter of the RCA about 5 mm. I deployed 5.0 by 38 mm stent which was positioned under fluoroscopy guidance and deployed under its nominal pressure. I postdilated the stent using 5 mm balloon. The following angiogram showed excellent angiographic results and the procedure was completed without any complication CONCLUSION: 1. Acute inferior ST elevation myocardial infarction 2. Very late stent thrombosis of the RCA 3. Successful stenting of the RCA using 4.0 x 38 mm Xience AMINTA with an excellent angiographic results 4. Normal left-sided filling pressure POSTPROCEDURE MANAGEMENT: Dual antiplatelet therapy along with aggressive cholesterol control and risk factors modification and follow-up with the patient
[2021-03-01 13:53] LABS: Glucose,Whole Blood 101 mg/dL (75-99)
[2021-03-01 15:50] LABS: Basophils % (A) 0 %; Eosinophils % (A) 0 %; HGB 16.7 gm/dL (13.0-17.5); Lymphocytes # (A) 1.4 k/uL (1.0-4.8); Lymphocytes % (A) 12 %; MCH 32.6 pg (25.0-35.0); MCHC 32.9 g/dL (31.0-37.0); MCV 99.3 fL (80.0-100.0); Mean Platelet Volume 9.1; Monocytes # (A) 0.5 k/uL (0-1.0); Monocytes % (A) 4 %; Neutrophils # (A) 9.4 k/uL (1.3-7.7); Neutrophils % (A) 83 %; Platelet Count 206 k/uL (150-450); RBC 5.13 m/uL (4.30-5.90); WBC 11.4 k/uL (3.8-10.6)
[2021-03-01 17:30] LABS: ALT 21 U/L (4-49); AST 72 U/L (17-59); African American GFR (CKD) >90 (>60 ml/min/1.73 sqM); Albumin 3.3 g/dL (3.5-5.0); Alkaline Phosphatase 60 U/L (38-126); Anion Gap 7 mmol/L; Blood Urea Nitrogen 6 mg/dL (9-20); Calcium 8.4 mg/dL (8.4-10.2); Carbon Dioxide 23 mmol/L (22-30); Chloride 108 mmol/L (98-107); Glucose 124 mg/dL (74-99); Non-African American GFR(CKD) >90 (>60 ml/min/1.73 sqM); Potassium 3.6 mmol/L (3.5-5.1); Sodium 138 mmol/L (137-145); Total Bilirubin 0.5 mg/dL (0.2-1.3); Total Protein 6.2 g/dL (6.3-8.2)
[2021-03-01 17:35] LABS: Partial Thromboplastin Time 30.4 sec (22.0-30.0); Prothrombin Time 10.7 sec (9.0-12.0)
[2021-03-01] MEDS ORDERED: Potassium Replacement Protocol 1 EACH MISC MISCELLANE PRN (19:22)
[2021-03-01] MEDS ORDERED: POTASSIUM CHLORIDE ER 20 MEQ TAB.ER PO SCH (20:00)
[2021-03-01] MEDS ORDERED: LACTULOSE 20 GM/30 ML CUP PO PRN (20:20)
[2021-03-01] MEDS ORDERED: ALPRAZolam 0.25 MG TAB PO PRN (20:20)
[2021-03-01] MEDS ORDERED: ACETAMINOPHEN TAB 325 MG TAB PO PRN (20:20)
[2021-03-01] MEDS ORDERED: MELATONIN 3 MG TABLET PO PRN (20:20)
[2021-03-01] MEDS ORDERED: ONDANSETRON 4 MG/2 ML VIAL IVP PRN (20:20)
[2021-03-01] MEDS ORDERED: NALOXONE 0.4 MG/ML 1 ML VIAL IV PRN (20:20)
--- NOTE | 2021-03-01 20:23 | P.HPIM ---
History of Present Illness H&P Date: 03/01/21 Chief Complaint: Chest pain This is a 45-year-old patient who follows Dr. Booker Saldivar. Patient has known coronary artery disease with prior stents, at least 6 MIs, arthritis in some joints hyperlipidemia hypertension. 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 Patient was in [place] today when he developed central chest pressure. Went down his left arm. Broke ordered a sweat shortness of breath. She went down to the [place] [facility] and had them bring him down to the ER. EKG showed ST elevation inferior NM. Patient was taken to the cardiac slab polisher. Mid RCA lesion was found and stenting was done by Dr. Cochran. Postprocedure patient is in the ICU. No chest pain or shortness of breath. Patient has continued to smoke. Review of systems: GEN.: Tired EYES: None HEENT: None NECK: None RESPIRATORY: As above CARDIOVASCULAR: As above GASTROINTESTINAL: None GENITOURINARY: None MUSCULOSKELETAL: Some joint pains LYMPHATICS: None HEMATOLOGICAL: None PSYCHIATRY: None NEUROLOGICAL: None Past medical history to include: Cerebral MIs with stent, hypertension, hyperlipidemia, osteoarthritis Social history: Lives with his . Smokes half a pack a day. Denies any drug. 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 Alcohol occasionally Family history: Mother's side clotting disorder Physical examination: VITAL SIGNS: 97.6, 60, 20, 120/73, 96% room air GENERAL: BMI 22.6, sitting on bed, awake. EYES: Pupils equal. Conjunctiva normal. HEENT: External appearance of nose and ears normal, oral cavity grossly normal. NECK: JVD not raised; masses not palpable. HEART: First and second heart sounds are normal; no edema. LUNGS: Respiratory rate normal; clear to auscultation. ABDOMEN: Soft, nontender, liver spleen not palpable, no masses palpable. PSYCH: Alert and oriented x3; mood and affect normal. MUSCULOSKELETAL:No Clubbing/cyanosis;muscles-grossly intact NEUROLOGICAL: Cranial nerves grossly intact; no facial asymmetry, power and sensation grossly intact. LYMPHATICS: No lymph nodes palpable in the axilla and neck INVESTIGATIONS, reviewed in the clinical context: White count 9.4 hemoglobin 16.7 platelets 26 potassium 3.6 creatinine 0.79 Troponin I 3.1, 8.2 Assessment and plan: -Acute inferior wall ST elevation microinfarction. Emergent cardiac cath with angioplasty stenting to RCA. 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 -Essential hypertension Lopressor 12.5 twice a day lisinopril 10 mg a day -Hyperlipidemia Crestor 20 mg a day -Chronic nicotine dependence, cigarette smoker Nicotine patch 14 Resume home medications. Effient. Lipid profile. Aspirin. 2-D echo. Discussed with the patient. Follow with cardiology. Past Medical History Past Medical History: Chest Pain / Angina, Hyperlipidemia, Myocardial Infarction (NM) Additional Past Medical History / Comment(s): Arthritis in both knees, elbows and wrists. Last Myocardial Infarction Date:: 08/20/18 History of Any Multi-Drug Resistant Organisms: None Reported Past Surgical History: Heart Catheterization, Heart Catheterization With Stent Past Anesthesia/Blood Transfusion Reactions: No Reported Reaction Date of Last Stent Placement:: 08/20/18 Past Psychological History: No Psychological Hx Reported Smoking Status: Current every day smoker Past Alcohol Use History: Occasional Past Drug Use History: None Reported - Past Family History Mother Family Medical History: Deep Vein Thrombosis (DVT) Additional Family Medical History / Comment(s): Pt states "my moms entire side of the family has a history of clotting." Medications and Allergies Home Medications Medication Instructions Recorded Confirmed Type Aspirin 81 mg PO DAILY #30 chew 08/22/18 03/01/21 Rx Clopidogrel [Plavix] 75 mg PO DAILY #30 tab 08/22/18 03/01/21 Rx Nitroglycerin Sl Tabs [Nitrostat] 0.4 mg SUBLINGUAL Q5M PRN #25 tab 08/22/18 03/01/21 Rx Metoprolol Tartrate [Lopressor] 25 mg PO BID 03/01/21 03/01/21 History Rosuvastatin [Crestor] 20 mg PO HS 03/01/21 03/01/21 History lisinopriL [Zestril] 5 mg PO DAILY 03/01/21 03/01/21 History Allergies Allergy/AdvReac Type Severity Reaction Status Date / Time olive Allergy Anaphylaxis Uncoded 03/01/21 15:05 Physical Exam Vitals: Vital Signs Temp Pulse Resp BP Pulse Ox 03/01/21 19:00 74 16 120/73 96 03/01/21 18:00 61 18 134/72 97 03/01/21 17:00 97.6 F 60 20 116/62 97 03/01/21 16:30 60 21 96 03/01/21 16:20 97 03/01/21 16:15 71 18 116/62 96 03/01/21 16:00 61 22 95 03/01/21 15:45 62 19 94 L 03/01/21 15:30 78 22 126/79 96 03/01/21 15:15 60 16 123/81 94 L 03/01/21 15:00 60 14 131/83 96 03/01/21 14:45 16 126/81 97 03/01/21 14:30 57 L 20 134/92 98 03/01/21 14:15 73 18 116/59 97 03/01/21 14:00 59 L 24 127/83 97 03/01/21 13:45 58 L 22 132/90 94 L 03/01/21 13:35 59 L 18 98 Intake and Output 03/01/21 03/01/21 03/01/21 06:59 14:59 22:59 Intake Total 550 875 Output Total 400 400 Balance 150 475 Intake: IV 550 375 Sodium Chloride 0.9% 1, 150 375 000 ml In Empty Bag 1 bag @ 75 mls/hr IV .[id number] [facility] Rx#:[id number] Oral 500 Output: Urine 400 400 Other: Voiding Method Urinal Weight 80 kg Results CBC & Chem 7: 03/01/21 14:43 03/01/21 17:10 Labs: Abnormal Lab Results - Last 24 Hours (Table) 03/01/21 03/01/21 03/01/21 Range/Units 13:51 14:43 14:43 WBC 11.4 H (3.8-10.6) k/uL Neutrophils # 9.4 H (1.3-7.7) k/uL APTT (22.0-30.0) sec Chloride (98-107) mmol/L BUN (9-20) mg/dL Glucose (74-99) mg/dL POC Glucose (mg/dL) 101 H (75-99) mg/dL AST (17-59) U/L Troponin I 3.140 H* (0.000-0.034) ng/mL Total Protein (6.3-8.2) g/dL Albumin (3.5-5.0) g/dL 03/01/21 03/01/21 03/01/21 Range/Units 17:10 17:11 17:11 WBC (3.8-10.6) k/uL Neutrophils # (1.3-7.7) k/uL APTT 30.4 H (22.0-30.0) sec Chloride 108 H (98-107) mmol/L BUN 6 L (9-20) mg/dL Glucose 124 H (74-99) mg/dL POC Glucose (mg/dL) (75-99) mg/dL AST 72 H (17-59) U/L Troponin I 8.290 H* (0.000-0.034) ng/mL Total Protein 6.2 L (6.3-8.2) g/dL Albumin 3.3 L (3.5-5.0) g/dL Thrombosis Risk Factor Assmnt - Choose All That Apply Any of the Below Risk Factors Present?: Yes Each Factor Represents 1 point: Acute NM Each Risk Factor Represents 3 Points: Family history of DVT/PE Other congenital or acquired thrombophilia - If yes, enter type in comment: No Thrombosis Risk Factor Assessment Total Risk Factor Score: 4 Thrombosis Risk Factor Assessment Level: Moderate Risk
[2021-03-01] MEDS: METOPROLOL TARTRATE 12.5 MG TAB PO SCH (20:43)
[2021-03-01] MEDS: CRESTOR 20 MG PO SCH (20:44)
--- NOTE | 2021-03-01 20:52 | XR ---
EXAMINATION TYPE: XR chest 1V portable DATE OF EXAM: 03/01/2021 8:39 PM COMPARISON:Multiple radiographs, with the most recent on 08/20/2018 TECHNIQUE: Frontal view of the chest. CLINICAL INDICATION:Male, 45 years old with history of Chest pain; FINDINGS: Lungs/Pleura: Bullous emphysema changes are noted within the primary right lung apex. There is no foc al consolidation, pneumothorax or pleural effusion. Pulmonary vascularity: Unremarkable. Heart/mediastinum: Cardiomediastinal silhouette is unremarkable. Musculoskeletal:No acute osseous pathology. IMPRESSION: COPD changes with Bullous emphysema of the right lung apex.
[2021-03-01] MEDS ORDERED: NON FORMULARY DRUG (Rosuvastatin 20 MG Tablet) PO SCH (21:00)
[2021-03-01] MEDS ORDERED: ATORVASTATIN 80 MG TAB PO SCH ×2 (21:00)
[2021-03-01] MEDS ORDERED: ATORVASTATIN 20 MG TAB PO SCH (21:00)
[2021-03-02 06:17] LABS: Basophils # (A) 0.1 k/uL (0-0.2); Basophils % (A) 1 %; Eosinophils # (A) 0.1 k/uL (0-0.7); Eosinophils % (A) 1 %; HGB 15.4 gm/dL (13.0-17.5); Lymphocytes % (A) 23 %; MCH 32.5 pg (25.0-35.0); MCHC 32.8 g/dL (31.0-37.0); Mean Platelet Volume 9.2; Monocytes # (A) 0.6 k/uL (0-1.0); Monocytes % (A) 7 %; Neutrophils # (A) 5.7 k/uL (1.3-7.7); Neutrophils % (A) 67 %; Platelet Count 178 k/uL (150-450); RBC 4.74 m/uL (4.30-5.90); RDW 13.2 % (11.5-15.5); WBC 8.6 k/uL (3.8-10.6)
[2021-03-02 06:42] LABS: African American GFR (CKD) >90 (>60 ml/min/1.73 sqM); Anion Gap -1 mmol/L; Blood Urea Nitrogen 4 mg/dL (9-20); Calcium 8.6 mg/dL (8.4-10.2); Carbon Dioxide 27 mmol/L (22-30); Chloride 111 mmol/L (98-107); Glucose 96 mg/dL (74-99); Non-African American GFR(CKD) >90 (>60 ml/min/1.73 sqM); Potassium 4.3 mmol/L (3.5-5.1); Sodium 137 mmol/L (137-145)
--- NOTE | 2021-03-02 07:26 | P.PN ---
Subjective Progress Note Date: 03/02/21 Principal diagnosis: Acute coronary syndrome This is a 45-year-old gentleman with coronary artery disease and prior stenting of the RCA as well as hypertension and dyslipidemia was admitted to the hospital yesterday with acute coronary syndrome. Difficult to chest discomfort and was diagnosed with acute inferior ST elevation myocardial infarction with subsequently an emergent heart catheterization was performed and was found to have very late stent thrombosis. He underwent successful stenting of the RCA with a good angiographic results. The patient was seen this morning he is asymptomatic from the cardiac standpoint of view. He is hemodynamically stable. The right radial site is soft and nontender with good pulse rate is on dual antiplatelet therapy along with high intensity statin along with beta arturo. An echocardiogram still pending. The patient can be transferred to the third floor for possible discharge home in the next 48 hours. No arrhythmia noted. Objective - Vital Signs Vital signs: Vital Signs Temp 97.6 F 03/02/21 04:00 Pulse 60 03/02/21 06:00 Resp 14 03/02/21 06:00 BP 122/82 03/02/21 06:00 Pulse Ox 95 03/02/21 06:00 Intake & Output 03/01/21 03/02/21 03/02/21 18:59 06:59 18:59 Intake Total 1350 1020 Output Total 800 1885 Balance 550 -865 Weight 80 kg 79.1 kg Intake: IV 850 900 Sodium Chloride 0.9% 1, 450 900 000 ml In Empty Bag 1 bag @ 75 mls/hr IV .[id number] [facility] Rx#:[id number] Oral 500 120 Output: Urine 800 1885 Other: Voiding Method Urinal Urinal - Constitutional General appearance: Present: no acute distress - Respiratory Respiratory: bilateral: CTA - Cardiovascular Rhythm: regular Heart sounds: normal: S1, S2 - Labs CBC & Chem 7: 03/02/21 05:59 03/02/21 05:59 Labs: Abnormal Lab Results - Last 24 Hours (Table) 03/01/21 03/01/21 03/01/21 Range/Units 13:51 14:43 14:43 WBC 11.4 H (3.8-10.6) k/uL Neutrophils # 9.4 H (1.3-7.7) k/uL APTT (22.0-30.0) sec Chloride (98-107) mmol/L BUN (9-20) mg/dL Glucose (74-99) mg/dL POC Glucose (mg/dL) 101 H (75-99) mg/dL AST (17-59) U/L Troponin I 3.140 H* (0.000-0.034) ng/mL Total Protein (6.3-8.2) g/dL Albumin (3.5-5.0) g/dL 03/01/21 03/01/21 03/01/21 Range/Units 17:10 17:11 17:11 WBC (3.8-10.6) k/uL Neutrophils # (1.3-7.7) k/uL APTT 30.4 H (22.0-30.0) sec Chloride 108 H (98-107) mmol/L BUN 6 L (9-20) mg/dL Glucose 124 H (74-99) mg/dL POC Glucose (mg/dL) (75-99) mg/dL AST 72 H (17-59) U/L Troponin I 8.290 H* (0.000-0.034) ng/mL Total Protein 6.2 L (6.3-8.2) g/dL Albumin 3.3 L (3.5-5.0) g/dL 03/01/21 03/02/21 Range/Units 20:23 05:59 WBC (3.8-10.6) k/uL Neutrophils # (1.3-7.7) k/uL APTT (22.0-30.0) sec Chloride 111 H (98-107) mmol/L BUN 4 L (9-20) mg/dL Glucose (74-99) mg/dL POC Glucose (mg/dL) (75-99) mg/dL AST (17-59) U/L Troponin I 19.400 H* (0.000-0.034) ng/mL Total Protein (6.3-8.2) g/dL Albumin (3.5-5.0) g/dL Assessment and Plan Assessment: Assessment #[address] patient myocardial infarction #2 status post PCI of the RCA #3 coronary artery disease with prior angioplasty in the past #4 hypertension #5 dyslipidemia Plan #1 continue dual antiplatelet therapy along with high intensity statin #2 the patient remains asymptomatic next #3 the patient in his Hemovac stable #4 he potentially can be transferred to the floor
[2021-03-02] MEDS: NICOTINE 14MG/24HR PATCH TRANSDERM SCH ×2 (07:32→08:19)
[2021-03-02] MEDS: METOPROLOL TARTRATE 12.5 MG TAB PO SCH ×2 (08:18→20:43)
[2021-03-02] MEDS: PRASUGREL 10 MG TAB PO SCH (08:18)
[2021-03-02] MEDS: ASPIRIN 81 MG PO SCH (08:18)
[2021-03-02] MEDS: lisinopriL 10 MG TAB PO SCH (08:19)
[2021-03-02] MEDS ORDERED: CLOPIDOGREL 75 MG TAB PO SCH (09:00)
[2021-03-02 09:14] LABS: Chol/HDL Ratio 3.56 Ratio; LDL Cholesterol,Calculated 72.2 mg/dL (0.0-131.0)
--- NOTE | 2021-03-02 10:38 | ECHOF ---
Referral Reason:LV function, STEMI MEASUREMENTS -------- HEIGHT: 188.0 cm WEIGHT: 81.6 kg BP: 128/83 RVIDd: 3.4 cm (< 3.3) IVSd: 1.1 cm (0.6 - 1.1) LVIDd: 5.2 cm (3.9 - 5.3) LVPWd: 1.2 cm (0.6 - 1.1) IVSs: 1.4 cm LVIDs: 3.9 cm LVPWs: 1.3 cm LA Diam: 3.1 cm (2.7 - 3.8) LAESV Index (A-L): 25.09 ml/m Ao Diam: 3.5 cm (2.0 - 3.7) AV Cusp: 2.4 cm (1.5 - 2.6) MV EXCURSION: 25.683 mm (> 18.000) MV EF SLOPE: 124 mm/s (70 - 150) EPSS: 0.7 cm MV E Agrth: 0.81 m/s MV DecT: 273 ms MV A Garth: 0.76 m/s MV E/A Ratio: 1.07 FINDINGS -------- Resting bradycardia (HR<60bpm). This was a technically good study. The left ventricular size is normal. There is borderline concentric left ventricular hypertrophy. Overall left ventricular systolic function is low-normal with, an EF between 50 - 55 %. Basal infe roseptal LV wall motion is hypokinetic. The right ventricle is mildly enlarged. Normal LA size by volume 22+/-6 ml/m2. The right atrium is normal in size. Interatrial and interventricular septum intact. The aortic valve is trileaflet, and appears structurally normal. No aortic stenosis or regurgitation. There is trace mitral regurgitation. The tricuspid valve appears structurally normal. Unable to estimate RVSP due to inadequate TR jet s pectral doppler profile. The pulmonic valve is normal. The aortic root size is normal. Normal inferior vena cava with normal inspiratory collapse consistent with estimated right atrial pre ssure of 5 mmHg. There is no pericardial effusion. CONCLUSIONS -------- 1. The left ventricular size is normal. 2. There is borderline concentric left ventricular hypertrophy. 3. Overall left ventricular systolic function is low-normal with, an EF between 50 - 55 %. 4. Basal inferoseptal LV wall motion is hypokinetic. 5. The right ventricle is mildly enlarged. 6. The aortic valve is trileaflet, and appears structurally normal. No aortic stenosis or regurgitati on. 7. There is trace mitral regurgitation. 8. There is no pericardial effusion. CONFERENCE SERVICES COORDINATOR: Linda Denise RDCS
[2021-03-02 11:08] VITALS: BMI 22.4
--- NOTE | 2021-03-02 20:13 | P.PN ---
Progress Note - Text Progress Note Date: 03/02/21 Chief Complaint: Chest pain This is a 45-year-old patient who follows Dr. Booker Saldivar. 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 Patient was in [place] today when he developed central chest pressure. Went down his left arm. Broke ordered a sweat shortness of breath. She went down to the [place] [facility] and had them bring him down to the ER. EKG showed ST elevation inferior NE. Patient was taken to the cardiac pathology laboratory aide. Mid RCA lesion was found and stenting was done by Dr. Cochran. Postprocedure patient is in the ICU. No chest pain or shortness of breath. Patient has continued to smoke. March 02: Up to the bathroom. No chest pain no shortness of breath. Results of chest x-ray discussed. Will have the patient follow with pulmonology. Review of systems: Was done for constitutional, cardiovascular, GI, pulmonary. relevant finding as above Active Medications Acetaminophen (Acetaminophen Tab 325 Mg Tab) 650 mg PO Q6HR PRN PRN Reason: Mild Pain or Fever > 100.5 Al Hydroxide/Mg Hydroxide (Mag Hydrox/Al Hydrox/Simeth 30 Ml Cup) 30 ml PO Q4HR PRN PRN Reason: Heartburn Alprazolam (Alprazolam 0.25 Mg Tab) 0.25 mg PO Q6HR PRN PRN Reason: Anxiety Aspirin (Aspirin 81 Mg) 81 mg PO DAILY [facility] Last Admin: 03/02/21 08:18 Dose: 81 mg Documented by: Atropine Sulfate (Atropine Sulfate 0.1 Mg/Ml 10ml Syringe) 0.5 mg IV ONCE PRN PRN Reason: Symptomatic Bradycardia Lactulose (Lactulose 20 Gm/30 Ml Cup) 20 gm PO DAILY PRN PRN Reason: Constipation Lisinopril (Lisinopril 10 Mg Tab) 10 mg PO DAILY [facility] Last Admin: 03/02/21 08:19 Dose: 10 mg Documented by: Melatonin (Melatonin 3 Mg Tablet) 3 mg PO HS PRN PRN Reason: Insomnia Metoprolol Tartrate (Metoprolol Tartrate 12.5 Mg Tab) 12.5 mg PO BID [facility] Last Admin: 03/02/21 08:18 Dose: 12.5 mg Documented by: Miscellaneous Information (Rx Info: Iv Contrast Was Given 1 Each Misc) 1 each MISCELLANE DAILY PRN PRN Reason: Per Protocol Stop: 03/03/21 12:42 Miscellaneous Information (Potassium Replacement Protocol 1 Each Misc) 1 each MISCELLANE DAILY PRN; Protocol PRN Reason: Per Protocol Naloxone HCl (Naloxone 0.4 Mg/Ml 1 Ml Vial) 0.2 mg IV Q2M PRN PRN Reason: Opioid Reversal Nicotine (Nicotine 14mg/24hr Patch) 1 patch TRANSDERM DAILY [facility] Last Admin: 03/02/21 08:19 Dose: 1 patch Documented by: Nitroglycerin (Nitroglycerin Sl Tabs 0.4 Mg Tab) 0.4 mg SUBLINGUAL Q5M PRN PRN Reason: Chest Pain Crestor ( Nonformulary) 20mg Tab 1 each PO HS [facility] Last Admin: 03/01/21 20:44 Dose: 1 each Documented by: Ondansetron HCl (Ondansetron 4 Mg/2 Ml Vial) 4 mg IVP Q8HR PRN PRN Reason: Nausea And Vomiting Prasugrel (Prasugrel 10 Mg Tab) 10 mg PO DAILY [facility]; Protocol Last Admin: 03/02/21 08:18 Dose: 10 mg Documented by: Zolpidem Tartrate (Zolpidem 5 Mg Tab) 5 mg PO HS PRN PRN Reason: Insomnia Past medical history to include: Cerebral MIs with stent, hypertension, hyperlipidemia, osteoarthritis Social history: Lives with his . Smokes half a pack a day. Denies any drug. 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 EYES: Pupils equal. Conjunctiva normal. HEENT: External appearance of nose and ears normal, oral cavity grossly normal. NECK: JVD not raised; masses not palpable. HEART: First and second heart sounds are normal; no edema. LUNGS: Respiratory rate normal; decreased breath sounds ABDOMEN: Soft, nontender, liver spleen not palpable, no masses palpable. PSYCH: Alert and oriented x3; mood and affect normal. MUSCULOSKELETAL:No Clubbing/cyanosis;muscles-grossly intact NEUROLOGICAL: Cranial nerves grossly intact; no facial asymmetry, power and sensation grossly intact. LYMPHATICS: No lymph nodes palpable in the axilla and neck INVESTIGATIONS, reviewed in the clinical context: White count 9.4 hemoglobin 16.7 platelets 26 potassium 3.6 creatinine 0.79 Troponin I 3.1, 8.2 EKG tracing personally reviewed by me-sinus rhythm. ST elevation inferior leads Chest x-ray film personally reviewed by me--hyperinflated. Bullous changes 2-D echocardiogram: EF 50-55%. Localized wall motion abnormality. Assessment and plan: -Acute inferior wall ST elevation microinfarction. Emergent cardiac cath with angioplasty stenting to RCA. 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 -Bullous emphysema Relatively asymptomatic. Patient to follow-up with pulmonary outpatient. Late outpatient PFT -Essential hypertension Lopressor 12.5 twice a day lisinopril 10 mg a day -Hyperlipidemia Crestor 20 mg a day -Chronic nicotine dependence, cigarette smoker Nicotine patch 14 Continue current medication treatment plan. Increase activity. Chest x-ray discussed with the patient. Smoke cessation counseling: This was done with the patient. Nicotine patch is being given. More than 3 minutes was spent for this
[2021-03-02] MEDS: CRESTOR 20 MG PO SCH (21:12)
[2021-03-03] MEDS: NICOTINE 14MG/24HR PATCH TRANSDERM SCH ×2 (08:56→08:57)
[2021-03-03] MEDS: METOPROLOL TARTRATE 12.5 MG TAB PO SCH (08:56)
[2021-03-03] MEDS: lisinopriL 10 MG TAB PO SCH (08:56)
[2021-03-03] MEDS: ASPIRIN 81 MG PO SCH (08:56)
[2021-03-03] MEDS: PRASUGREL 10 MG TAB PO SCH (08:56)
[2021-03-03 11:24] VITALS: RESP 16; TEMP 97.5
--- NOTE | 2021-03-03 13:37 | P.PN ---
Subjective Progress Note Date: 03/03/21 HISTORY OF PRESENT ILLNESS: This is a 45-year-old male with a past medical history significant for coronary artery disease with multiple previous stents (6 per patient, thinks most recent stent was 2 years ago), hypertension, hyperlipidemia, and nicotine dependence. Patient follows with a power generation equipment repairer out of [place]. We have been asked to see the patient in consultation for STEMI. Patient presented to the ER via EMS secondary to chest pain. Patient states he started having chest pain about an hour ago. He reports radiation to the left arm. He also reports diaphoresis. Patient did receive 4 baby aspirin, nitro, and morphine per EMS. Patient is currently rating his pain 7/10. EKG performed by EMS revealed ST elevation in inferior leads with reciprocal changes in the anterior and lateral leads. Patient did have an echocardiogram performed at this facility in 2019 revealing ejection fraction 55-60% with mild tricuspid regurgitation Patient underwent cardiac catheterization with Dr. Cervantes in 2019 revealing total occlusion of the RCA. No significant disease in the left system. Right is a super dominant vessel that was stented with bare metal stent with excellent re sults. 03/03/2021 Patient examined this morning at the bedside. Patient is status post cardiac catheterization with PCI to the RCA. Echocardiogram completed revealing ejection fraction 50-55%. Patient denies chest pain or pressure. He denies shortness of breath. He has been up ambulating in his room without difficulty. His vital signs are stable. He is hoping to be discharged home today. PHYSICAL EXAM: VITAL SIGNS: Reviewed. GENERAL: Well-developed in no acute distress. HEENT: Head is normocephalic. Pupils are equal, round. Sclerae anicteric. Mucous membranes of the mouth are moist. Neck supple. No JVD or thyromegaly LUNGS: Respirations even and unlabored. Lungs essentially clear to auscultation bilaterally. HEART: Regular rate and rhythm. S1 and S2 heard. ABDOMEN: Soft. Nondistended. Nontender. EXTREMITIES: Normal range of motion. No clubbing or cyanosis. Peripheral pulses intact. No lower extremity edema NEUROLOGIC: Awake and alert. Oriented x 3. ASSESSMENT: Inferior STEMI, status post PCI to RCA Coronary artery disease with previous PCI Hypertension Hyperlipidemia Nicotine dependence PLAN: Continue current cardiac medications Continue dual antiplatelet therapy with aspirin and Effient Smoking cessation recommended Patient to follow up with his primary power generation equipment repairer in [place] Patient stable for discharge home today from a cardiac standpoint Nurse practitioner note has been reviewed by physician. Signing provider agrees with the documented findings, assessment, and plan of care. Objective - Vital Signs Vital signs: Vital Signs Temp 97.5 F L 03/03/21 08:00 Pulse 63 03/03/21 08:00 Resp 16 03/03/21 08:00 BP 106/52 03/03/21 08:00 Pulse Ox 95 03/03/21 08:00 Intake & Output 03/02/21 03/03/21 03/03/21 18:59 06:59 18:59 Intake Total 225 240 Output Total 0 Balance 225 240 Weight 79.1 kg Intake: IV 225 Sodium Chloride 0.9% 1, 225 000 ml In Empty Bag 1 bag @ 75 mls/hr IV .[id number] [facility] Rx#:[id number] Oral 240 Output: Urine 0 Other: Voiding Method Urinal Toilet Toilet Urinal Urinal # Voids 0 2 - Labs CBC & Chem 7: 03/02/21 05:59 03/02/21 05:59
[2021-03-03 13:40] VITALS: BP 102/60; PULSE 50
--- NOTE | 2021-03-03 21:34 | P.DS ---
Providers Date of admission: 03/01/21 11:44 Expected date of discharge: 03/03/21 Attending physician: Ronny Kingsley Consults: 03/01/21 11:43 Consult Physician Stat Consulting Provider: Cody Montanez Consult Reason/Comments: STEMI ACTIVATION COMPLETE Do you want consulting provider notified?: Already Contacted 03/01/21 12:42 Consult Physician Routine Consulting Provider: Cody Montanez Consult Reason/Comments: Post Interventional patient Do you want consulting provider notified?: Already Contacted Primary care physician: Booker Saldivar [facility] Course: Chief Complaint: Chest pain This is a 45-year-old patient who follows Dr. Booker Saldivar. Patient has known coronary artery disease with prior stents, at least 6 MIs, arthritis in some joints hyperlipidemia hypertension. 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 Patient was in [place] today when he developed central chest pressure. Went down his left arm. Broke ordered a sweat shortness of breath. She went down to the [place] [facility] and had them bring him down to the ER. EKG showed ST elevation inferior VT. Patient was taken to the cardiac laborer [facility]. Mid RCA lesion was found and stenting was done by Dr. Cochran. Postprocedure patient is in the ICU. No chest pain or shortness of breath. Patient has continued to smoke. March 02: Up to the bathroom. No chest pain no shortness of breath. Results of chest x-ray discussed. Will have the patient follow with pulmonology. March 03: Ambulatory. No cardiac symptoms. Care was discussed with the patient and . Questions answered. We'll follow up with Dr. Brice for his lung for outpatient PFTs. And follow-up with cardiology. Consultation: Cardiology associates Past medical history to include: Cerebral MIs with stent, hypertension, hyperlipidemia, osteoarthritis Social history: Lives with his . Smokes half a pack a day. Denies any drug. 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 Alcohol occasionally Family history: Mother's side clotting disorder Physical examination: VITAL SIGNS: 97.5, 63, 16, 106/52, 95% room air GENERAL: Reclining in bed, awake, comfortable. EYES: Pupils equal. Conjunctiva normal. HEENT: External appearance of nose and ears normal, oral cavity grossly normal. NECK: JVD not raised; masses not palpable. HEART: First and second heart sounds are normal; no edema. LUNGS: Respiratory rate normal; decreased breath sounds ABDOMEN: Soft, nontender, liver spleen not palpable, no masses palpable. PSYCH: Alert and oriented x3; mood and affect normal. MUSCULOSKELETAL:No Clubbing/cyanosis;muscles-grossly intact INVESTIGATIONS, reviewed in the clinical context: White count 9.4 hemoglobin 16.7 platelets 26 potassium 3.6 creatinine 0.79 LDL: 72 Troponin I 3.1, 8.2 EKG tracing personally reviewed by me-sinus rhythm. ST elevation inferior leads Chest x-ray film personally reviewed by me--hyperinflated. Bullous changes 2-D echocardiogram: EF 50-55%. Localized wall motion abnormality. Assessment and plan: -Acute inferior wall ST elevation myocardial infarction Emergent cardiac cath with angioplasty stenting to RCA. 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 -Bullous emphysema Relatively asymptomatic. Patient to follow-up with pulmonary outpatient. 4 outpatient PFT -Essential hypertension Lopressor 12.5 twice a day lisinopril 10 mg a day -Hyperlipidemia Crestor 20 mg a day -Chronic nicotine dependence, cigarette smoker Nicotine patch 14 Disposition: Home Plan - Discharge Summary Discharge Rx Participant: Yes New Discharge Prescriptions: New Prasugrel [Effient] 10 mg PO DAILY #90 tab Nicotine 14Mg/24Hr Patch [Habitrol] 1 patch TRANSDERM DAILY #30 patch Metoprolol Tartrate [Lopressor] 12.5 mg PO BID #180 tab Atorvastatin [Lipitor] 80 mg PO HS #90 tab Albuterol Sulfate [Albuterol Sulfate Hfa] 1 puff PO Q4-6H #8.5 gm lisinopriL [Zestril] 10 mg PO DAILY #30 tab Continue Aspirin 81 mg PO DAILY #30 chew Nitroglycerin Sl Tabs [Nitrostat] 0.4 mg SUBLINGUAL Q5M PRN #25 tab PRN Reason: Chest Pain Discontinued Clopidogrel [Plavix] 75 mg PO DAILY #30 tab lisinopriL [Zestril] 5 mg PO DAILY Rosuvastatin [Crestor] 20 mg PO HS Metoprolol Tartrate [Lopressor] 25 mg PO BID Discharge Medication List Aspirin 81 mg PO DAILY #30 chew 08/22/18 [Rx] Nitroglycerin Sl Tabs [Nitrostat] 0.4 mg SUBLINGUAL Q5M PRN #25 tab 07/18/19 [Rx] Albuterol Sulfate [Albuterol Sulfate Hfa] 1 puff PO Q4-6H #8.5 gm 03/03/21 [Rx] Atorvastatin [Lipitor] 80 mg PO HS #90 tab 03/03/21 [Rx] Metoprolol Tartrate [Lopressor] 12.5 mg PO BID #180 tab 03/03/21 [Rx] Nicotine 14Mg/24Hr Patch [Habitrol] 1 patch TRANSDERM DAILY #30 patch 03/03/21 [Rx] Prasugrel [Effient] 10 mg PO DAILY #90 tab 03/03/21 [Rx] lisinopriL [Zestril] 10 mg PO DAILY #30 tab 03/03/21 [Rx] Follow up Appointment(s)/Referral(s): Alek Watkins MD [STAFF PHYSICIAN] - 1 Week Booker Saldivar MD [Primary Care Provider] - 1-2 days Korey Brice MD [STAFF PHYSICIAN] - 1 Week Patient Instructions/Handouts: *Surgery [facility] - After Heart Catheterization - Credit Risk Modeler Instructions, Heart Attack (GEN) Discharge Disposition: HOME SELF-CARE
== END 2021-03-03 13:33 | disposition home or self-care (01) | DRG 247 ==
LOC: EC 11:39 → 2SICU 11:44 → 3SCARD 03-02 09:29
PROVIDERS: ADMIT Hospitalist; ATTEND Hospitalist
PROC: 4A023N7 Measurement of Cardiac Sampling and Pressure, Left Heart, Percutaneous Approach (ICD-10-PCS; principal; 2021-03-01 11:44)
PROC: B2111ZZ Fluoroscopy of Multiple Coronary Arteries using Low Osmolar Contrast (ICD-10-PCS; principal; 2021-03-01 11:44)
PROC: 02C03ZZ Extirpation of Matter from Coronary Artery, One Artery, Percutaneous Approach (ICD-10-PCS; principal; 2021-03-01 11:44)
PROC: B240ZZ3 Ultrasonography of Single Coronary Artery, Intravascular (ICD-10-PCS; principal; 2021-03-01 11:44)
PROC: 027034Z Dilation of Coronary Artery, One Artery with Drug-eluting Intraluminal Device, Percutaneous Approach (ICD-10-PCS; principal; 2021-03-01 11:44)
DX: I21.19 ST elevation (STEMI) myocardial infarction involving other coronary artery of inferior wall (principal); F17.210 Nicotine dependence, cigarettes, uncomplicated; I10 Essential (primary) hypertension; E78.5 Hyperlipidemia, unspecified; I25.10 Atherosclerotic heart disease of native coronary artery without angina pectoris; I25.2 Old myocardial infarction; J43.9 Emphysema, unspecified; M17.0 Bilateral primary osteoarthritis of knee; I34.0 Nonrheumatic mitral (valve) insufficiency; M19.022 Primary osteoarthritis, left elbow; M19.021 Primary osteoarthritis, right elbow; M19.032 Primary osteoarthritis, left wrist; M19.031 Primary osteoarthritis, right wrist; Z83.2 Family history of diseases of the blood and blood-forming organs and certain disorders involving the immune mechanism; Z79.899 Other long term (current) drug therapy; Z79.82 Long term (current) use of aspirin; Z79.02 Long term (current) use of antithrombotics/antiplatelets; Z91.018 Allergy to other foods
CPT/HCPCS: 71045; 80048; 80053; 80061; 84484; 85025; 85610; 85730; 92978; 93306; 93458; 94760; 99285